=== PATIENT | male | born 1965 | race Caucasian/White ===

== ENCOUNTER → 2016-04-14 | Outpatient (CLI) | payer OTHER | END | disposition home or self-care (01) | DX: R13.10 Dysphagia, unspecified (principal); K21.9 Gastro-esophageal reflux disease without esophagitis | CPT/HCPCS: 92611 GN ==

== ENCOUNTER 2017-09-22 07:34 | Inpatient (IN) | payer OTHER ==
[~2017-09-22] VITALS: Ht 180.3 cm; Wt 103.7 kg
[2017-09-22 08:04] LABS: HEMATOCRIT 38.5 % (38.0-50.0); HEMOGLOBIN 13.1 G/DL (12.5-16.6); MCH 29.6 PG (29.0-34.0); MCV 86.9 FL (86-99); PLATELET COUNT 306 K/uL (156-360); RBC DIS.WIDTH-CV 12.7 % (11.8-14.6); RBC DIS.WIDTH-SD 40.6 % (39-53); RED BLOOD COUNT 4.43 M/uL (4.00-5.50); WHITE BLOOD COUNT 9.3 K/uL (4.1-10.2)
[2017-09-22 08:28] LABS: ALBUMIN 3.9 G/DL (3.2-4.8); CHLORIDE 103 MEQ/L (99-109); POTASSIUM 4.3 MEQ/L (3.7-5.4); SODIUM 140 MEQ/L (136-147); TOTAL BILIRUBIN 0.6 MG/DL (0.0-1.0)
[2017-09-22 08:33] LABS: ALKALINE PHOSPHATASE 85 IU/L (3-129); ALT (GPT) 73 IU/L (3-49); AST (GOT) 38 IU/L (2-34); GFR ESTIMATE (CALCULATED) > 59 mL/min/ (58.99-99999); GLUCOSE 116 mg/dL (70-99); LIPASE 7 U/L (1.0-51.0); TOTAL PROTEIN 7.8 G/DL (6.4-8.3); UREA NITROGEN (BUN) 16 mg/dL (9-23)
[2017-09-22 09:13] LABS: APPEARANCE CLEAR ((CLEAR)); BILIRUBIN NEGATIVE; BLOOD SMALL; COLOR YELLOW ((YELLOW)); GLUCOSE (STRIP) NEGATIVE; KETONES NEGATIVE; LEUKOCYTES NEGATIVE; NITRITE NEGATIVE; PROTEIN (STRIP) NEGATIVE; SPECIFIC GRAVITY 1.026 (1.000-1.030)
[2017-09-22 09:35] LABS: BACTERIA NONE SEEN /HPF; EPITHELIAL CELLS NONE SEEN /HPF; MUCUS 3+ /LPF; RED BLOOD CELLS 0-5 /HPF (0-5); WHITE BLOOD CELLS NONE SEEN /HPF (0-5)
[2017-09-22] MEDS ORDERED: FENOFIBRATE48 MG PO (10:55)
[2017-09-22] MEDS ORDERED: LO-DOSE ASPIRIN81 M2 PO (10:55)
[2017-09-22] MEDS ORDERED: RAMIPRIL2.5 MG PO (10:55)
[2017-09-22] MEDS ORDERED: PEPCID20 MG PO (10:56)
[2017-09-22 15:50] VITALS: BP 134/73
[2017-09-22 19:50] VITALS: BP 144/84
[2017-09-22 23:20] VITALS: BP 161/84
[2017-09-23 03:40] VITALS: BP 151/70
[2017-09-23 06:10] LABS: BASOPHIL (%) 0.2 % (0-1); EOSINOPHIL (%) 0.7 % (0-5); EOSINOPHIL COUNT 0.1 K/uL (0-0.3); HEMATOCRIT 36.9 % (38.0-50.0); HEMOGLOBIN 11.9 G/DL (12.5-16.6); IMMATURE GRANULOCYTE (%) 0.3 % (0.0-0.7); LYMPHOCYTE (%) 16.5 % (15-42); LYMPHOCYTE COUNT 1.5 K/uL (1.0-2.8); MCH 28.6 PG (29.0-34.0); MCHC 32.2 G/DL (30.0-36.0); MCV 88.7 FL (86-99); MONOCYTE (%) 9.9 % (3-12); MONOCYTE COUNT 0.9 K/uL (0-0.8); NEUTROPHIL (%) 72.4 % (45-76); NEUTROPHIL COUNT 6.5 K/uL (1.8-6.4); PLATELET COUNT 291 K/uL (156-360); RBC DIS.WIDTH-CV 12.5 % (11.8-14.6); RBC DIS.WIDTH-SD 41.1 % (39-53); RED BLOOD COUNT 4.16 M/uL (4.00-5.50)
[2017-09-23 07:34] VITALS: BP 135/80
[2017-09-23 14:51] VITALS: BP 131/71
[2017-09-23 19:32] VITALS: BP 144/80
[2017-09-24] VITALS (7 sets, daily range): BP systolic 122–170; BP diastolic 71–91
[2017-09-24 09:23] LABS: HEMATOCRIT 32.1 % (38.0-50.0); HEMOGLOBIN 10.5 G/DL (12.5-16.6); MCHC 32.7 G/DL (30.0-36.0); MCV 88.7 FL (86-99); PLATELET COUNT 277 K/uL (156-360); RBC DIS.WIDTH-CV 12.7 % (11.8-14.6); RBC DIS.WIDTH-SD 41.8 % (39-53); RED BLOOD COUNT 3.62 M/uL (4.00-5.50); WHITE BLOOD COUNT 7.7 K/uL (4.1-10.2)
[2017-09-24 10:01] LABS: ALBUMIN 2.9 G/DL (3.2-4.8); ALKALINE PHOSPHATASE 61 IU/L (3-129); ALT (GPT) 46 IU/L (3-49); CHLORIDE 105 MEQ/L (99-109); CREATININE 0.7 MG/DL (0.6-1.3); GFR ESTIMATE (CALCULATED) > 59 mL/min/ (58.99-99999); GLUCOSE 127 mg/dL (70-99); PHOSPHORUS 2.1 mg/dL (2.5-4.9); POTASSIUM 4.1 MEQ/L (3.7-5.4); SODIUM 136 MEQ/L (136-147); TOTAL BILIRUBIN 0.6 MG/DL (0.0-1.0); UREA NITROGEN (BUN) 10 mg/dL (9-23)
[2017-09-24 10:04] LABS: AST (GOT) 17 IU/L (2-34); TOTAL PROTEIN 5.7 G/DL (6.4-8.3)
[2017-09-25 04:25] VITALS: BP 154/95
[2017-09-25 06:26] LABS: HEMATOCRIT 37.2 % (38.0-50.0); HEMOGLOBIN 12.1 G/DL (12.5-16.6); MCH 28.7 PG (29.0-34.0); MCHC 32.5 G/DL (30.0-36.0); MCV 88.4 FL (86-99); RBC DIS.WIDTH-CV 12.6 % (11.8-14.6); RBC DIS.WIDTH-SD 41.3 % (39-53); RED BLOOD COUNT 4.21 M/uL (4.00-5.50); WHITE BLOOD COUNT 9.4 K/uL (4.1-10.2)
[2017-09-25 06:31] LABS: PLATELET COUNT 374 K/uL (156-360)
[2017-09-25 06:49] LABS: CHLORIDE 103 MEQ/L (99-109); CREATININE 0.8 MG/DL (0.6-1.3); GFR ESTIMATE (CALCULATED) > 59 mL/min/ (58.99-99999); GLUCOSE 158 mg/dL (70-99); POTASSIUM 4.5 MEQ/L (3.7-5.4); SODIUM 139 MEQ/L (136-147); UREA NITROGEN (BUN) 11 mg/dL (9-23)
[2017-09-25 07:25] VITALS: BP 171/87
[2017-09-25 12:30] VITALS: BP 150/82
[2017-09-25 16:15] VITALS: BP 147/83
[2017-09-25 20:50] VITALS: BP 158/83
[2017-09-25 21:46] LABS: APPEARANCE SL.HAZY ((CLEAR)); BILIRUBIN NEGATIVE; BLOOD SMALL; COLOR AMBER ((YELLOW)); GLUCOSE (STRIP) NEGATIVE; KETONES NEGATIVE; LEUKOCYTES NEGATIVE; NITRITE NEGATIVE; PROTEIN (STRIP) 30; SPECIFIC GRAVITY 1.035 (1.000-1.030); UROBILINOGEN 0.2 MG/DL (0.2-1.0)
[2017-09-25 21:55] LABS: BACTERIA NONE SEEN /HPF; EPITHELIAL CELLS RARE /HPF; MUCUS TRACE /LPF; UCUL ADDED? NO; WHITE BLOOD CELLS 0-5 /HPF (0-5)
[2017-09-26 00:25] VITALS: BP 159/86
[2017-09-26 04:20] VITALS: BP 160/99
[2017-09-26 05:13] LABS: HEMATOCRIT 37.1 % (38.0-50.0); HEMOGLOBIN 12.3 G/DL (12.5-16.6); MCH 29.3 PG (29.0-34.0); MCHC 33.2 G/DL (30.0-36.0); MCV 88.3 FL (86-99); PLATELET COUNT 400 K/uL (156-360); RBC DIS.WIDTH-CV 12.7 % (11.8-14.6); RBC DIS.WIDTH-SD 41.4 % (39-53); WHITE BLOOD COUNT 8.5 K/uL (4.1-10.2)
[2017-09-26 05:52] LABS: CHLORIDE 105 MEQ/L (99-109); CREATININE 0.8 MG/DL (0.6-1.3); GFR ESTIMATE (CALCULATED) > 59 mL/min/ (58.99-99999); GLUCOSE 136 mg/dL (70-99); PHOSPHORUS 2.1 mg/dL (2.5-4.9); POTASSIUM 4.3 MEQ/L (3.7-5.4); SODIUM 140 MEQ/L (136-147); UREA NITROGEN (BUN) 12 mg/dL (9-23)
[2017-09-26 08:15] VITALS: BP 142/82
[2017-09-26 11:36] VITALS: BP 124/97
[2017-09-26 16:00] VITALS: BP 153/86
[2017-09-26 23:28] VITALS: BP 142/83
[2017-09-27 06:19] LABS: HEMATOCRIT 35.5 % (38.0-50.0); HEMOGLOBIN 11.5 G/DL (12.5-16.6); MCH 28.8 PG (29.0-34.0); MCHC 32.4 G/DL (30.0-36.0); PLATELET COUNT 370 K/uL (156-360); RBC DIS.WIDTH-CV 12.8 % (11.8-14.6); RBC DIS.WIDTH-SD 42.2 % (39-53); RED BLOOD COUNT 3.99 M/uL (4.00-5.50); WHITE BLOOD COUNT 6.3 K/uL (4.1-10.2)
[2017-09-27 06:44] LABS: CHLORIDE 105 MEQ/L (99-109); CREATININE 0.8 MG/DL (0.6-1.3); GFR ESTIMATE (CALCULATED) > 59 mL/min/ (58.99-99999); GLUCOSE 114 mg/dL (70-99); MAGNESIUM 1.8 mg/dl (1.3-2.7); PHOSPHORUS 2.6 mg/dL (2.5-4.9); SODIUM 140 MEQ/L (136-147); UREA NITROGEN (BUN) 9 mg/dL (9-23)
[2017-09-27 08:00] VITALS: BP 126/75
[2017-09-27 12:12] LABS: C DIFF TOXIN NEGATIVE (NEGATIVE)
[2017-09-27 16:17] VITALS: BP 151/86
[2017-09-27 23:20] VITALS: BP 148/87
[2017-09-28 06:34] LABS: HEMATOCRIT 36.2 % (38.0-50.0); MCH 29.2 PG (29.0-34.0); MCHC 33.1 G/DL (30.0-36.0); MCV 88.1 FL (86-99); PLATELET COUNT 376 K/uL (156-360); RBC DIS.WIDTH-CV 12.8 % (11.8-14.6); RBC DIS.WIDTH-SD 40.8 % (39-53); RED BLOOD COUNT 4.11 M/uL (4.00-5.50); WHITE BLOOD COUNT 6.7 K/uL (4.1-10.2)
[2017-09-28 06:55] LABS: CHLORIDE 102 MEQ/L (99-109); CREATININE 0.9 MG/DL (0.6-1.3); GFR ESTIMATE (CALCULATED) > 59 mL/min/ (58.99-99999); GLUCOSE 95 mg/dL (70-99); SODIUM 138 MEQ/L (136-147); UREA NITROGEN (BUN) 11 mg/dL (9-23)
[2017-09-28 07:30] VITALS: BP 137/82
== END 2017-09-28 14:18 | disposition home or self-care (01) | DRG 329 ==
LOC: EME 07:34 → 2EAST 12:58 → EDOF 12:58 → ENRESERV 14:03 → 2EAST 15:05
PROVIDERS: Nurse Practitioner Family; Physician Assistant Surgical; Surgery
PROC: 0D9J30Z Drainage of Appendix with Drainage Device, Percutaneous Approach (ICD-10-PCS; 2017-09-22)
PROC: 0DTF4ZZ Resection of Right Large Intestine, Percutaneous Endoscopic Approach (ICD-10-PCS; principal; 2017-09-23)
PROC: 0DBB4ZZ Excision of Ileum, Percutaneous Endoscopic Approach (ICD-10-PCS; principal; 2017-09-23)
DX: C18.1 Malignant neoplasm of appendix (principal); K56.7 Ileus, unspecified; K35.3 Acute appendicitis with localized peritonitis; R31.9 Hematuria, unspecified; E78.5 Hyperlipidemia, unspecified; I10 Essential (primary) hypertension; Z96.659 Presence of unspecified artificial knee joint
CPT/HCPCS: 71046; 74018; 74177; 75989; 80048; 80053; 81003; 82378; 82948; 83605; 83690; 83735; 84100; 85025; 85027; 87040; 87493; 88309; 93005; 94799; 99281; 99284; C1729; C1769; J0131; J1100; J1170; J1650; J1885; J2250; J2405; J2543; J2550; J2710; J2765; J3010; J7030; J7042; J7050; J7643